=== PATIENT | female | born 1980 | race Caucasian/White ===

== ENCOUNTER 2020-10-05 08:00 | Outpatient (CLI) | payer OTHER, SELFPAY ==
--- NOTE | ~2020-10-05 | XR_ITS ---
EXAMINATION: XR chest 2V 10/05/2020 08:16 INDICATION: Chest palpitations PROCEDURE: 2 view chest COMPARISON: No prior studies for comparison. FINDINGS: The lungs are clear. The cardiomediastinal silhouette is within normal limits. There are no pleural effusions. There is no pneumothorax suspected. IMPRESSION: 1: NO ACUTE CARDIOPULMONARY DISEASE. Reviewed, dictated and finalized at location A.
== END 2020-10-05 08:01 | disposition home or self-care (01) ==
PROVIDERS: PCP Family Medicine; Visit Provider Family Medicine
DX: R00.2 Palpitations (principal)
CPT/HCPCS: 71046

== ENCOUNTER 2021-04-07 09:42 | Outpatient (CLI) | payer OTHER, SELFPAY ==
--- NOTE | ~2021-04-07 | CT_ITS ---
EXAMINATION: CT abdomen pelvis wo con EXAM DATE: 04/07/2021 10:13 INDICATION: R19.7 - Diarrhea, unspecified , abdominal cramping left lower quadrant. Blood per rectum. TECHNIQUE: Spiral CT of the abdomen and pelvis was performed without contrast. Axial, coronal and s agittal images of the abdomen and pelvis were reviewed. The dose-length product (DLP) for this exami nation was 549.79 mGy-cm. The exposure was tailored according to patient size (auto mA exposure cont rol), and iterative reconstruction (ASIR) was used as additional dose reduction technique. There is no prior study for comparison. FINDINGS: The liver, spleen, adrenal glands and pancreas are unremarkable. Gallbladder is unremarkab le. No biliary obstruction. There is no nephrolithiasis or hydronephrosis. The uterus is antevert ed and morphologically normal. The bladder is unremarkable. There is no retroperitoneal or pelvic lymphadenopathy. Small umbilical fat-containing hernia. The appendix is normal. The stomach and small bowel are unremarkable. Splenic flexure and descendin g colon are nondistended with prominent wall, could be infectious colitis. No free intraperitoneal gas. The heart is normal in size. There are no pericardial or pleural effusions. The lung bases a re unremarkable. There are no osteoblastic or osteolytic lesions identified. IMPRESSION: Suspicion of splenic flexure, descending colonic colitis. Would likely be infectious etio logy. Reviewed, dictated and finalized at location B. IMPRESSION: Suspicion of splenic flexure, descending colonic colitis. Would lik fauzia be infectious etiology.
== END 2021-04-07 09:43 ==
PROVIDERS: PCP Family Medicine; Visit Provider Family Medicine
DX: R19.7 Diarrhea, unspecified (principal); K62.5 Hemorrhage of anus and rectum; R10.32 Left lower quadrant pain
CPT/HCPCS: 74176

== ENCOUNTER → 2023-03-11 13:11 | Outpatient (CLI) | payer OTHER, SELFPAY ==
--- NOTE | ~2023-03-11 | MM_ITS ---
EXAMINATION: MM screening maribel BI w adiel HISTORY: Baseline screening mammogram TECHNIQUE: Craniocaudal and mediolateral oblique 3-D tomosynthesis images were obtained and synthetic 2-D images were generated. CAD analysis was submitted and interpreted. COMPARISON: None, baseline BREAST PARENCHYMAL COMPOSITION: There are scattered areas of fibroglandular density. FINDINGS: RIGHT BREAST: There is focal asymmetry in the posterior third of the upper breast. LEFT BREAST: There is focal asymmetry in the middle third of the slightly lower, slightly inner breas t. IMPRESSION: 1. Bilateral focal asymmetries. 2. Additional mammographic views and possible breast ultrasound are recommended to evaluate the bilat eral focal asymmetries and establish a baseline given that this is the first mammographic examination . BI-RADS Category 0: Incomplete: Needs additional imaging evaluation. Reviewed, dictated and finalized at location A. IMPRESSION: 1. Bilateral focal asymmetries. 2. Additional mammographic views and possible breast ultrasound are recommended to evaluate the bilateral focal asymmetries and establish a baseline given tasha t this is the first mammographic examination. BI-RADS Category 0: Incomplete: Needs additional imaging evaluation.
== END ==
PROVIDERS: PCP Family Medicine; Visit Provider Physician Assistant
DX: Z12.31 Encounter for screening mammogram for malignant neoplasm of breast (principal); R92.8 Other abnormal and inconclusive findings on diagnostic imaging of breast
CPT/HCPCS: 77063; 77067

== ENCOUNTER 2023-04-04 07:50 | Outpatient (CLI) | payer OTHER, SELFPAY ==
--- NOTE | ~2023-04-04 | MMUS_ITS ---
EXAMINATION: MM diagnostic maribel BI w adiel, US breast RT limited HISTORY: Follow-up breast asymmetries TECHNIQUE: Additional 3-D tomosynthesis images of the breasts were performed and synthetic 2-D images were generated. CAD analysis was submitted and interpreted. High resolution limited right breast ult rasound was performed. COMPARISON: 03/11/2023 BREAST PARENCHYMAL COMPOSITION: The breasts are heterogeneously dense, which may obscure small masses FINDINGS: MAMMOGRAPHIC FINDINGS: Left breast asymmetry compresses with spot and mediolateral views, consistent with superimposed fibro glandular tissue. There is persistent asymmetry superiorly in the right breast on MLO and ML views. ULTRASOUND: Limited right breast ultrasound: At 1:00, 1 cm from the nipple there is 2 mm cyst. At 10:00, 7 cm fro m the nipple there is an oval hypoechoic mass measuring 6 mm with parallel orientation, no significan t posterior features and no internal vascularity, likely complicated cysts. At 10:00, 4 cm from the n ipple there is a 3 mm cyst. IMPRESSION: 1. Probable benign complicated cyst of the right breast at 10:00, 7 cm from the nipple. Right breast asymmetry is likely superimposed fibroglandular tissue. 2. Recommend 6 month follow-up diagnostic right mammogram and Limited right breast ultrasound BI-RADS category 3, probably benign findings. Reviewed, dictated and finalized at location A. IMPRESSION: 1. Probable benign complicated cyst of the right breast at 10:00, 7 cm from the nipple. Right breast asymmetry is likely superimposed fibroglandular tissue. 2. Recommend 6 month follow-up diagnostic right mammogram and Limited right lupillo ast ultrasound BI-RADS category 3, probably benign findings.
== END 2023-04-04 07:51 ==
LOC: MICIMG 07:51
PROVIDERS: PCP Family Medicine; Visit Provider Physician Assistant
DX: R92.8 Other abnormal and inconclusive findings on diagnostic imaging of breast (principal)
CPT/HCPCS: 76642; 77062; 77066; G0279

== ENCOUNTER 2023-09-05 10:11 | Outpatient (CLI) | payer OTHER, SELFPAY ==
--- NOTE | ~2023-09-05 | MMUS_ITS ---
EXAMINATION: MM diagnostic maribel RT w adiel, US breast RT complete HISTORY: Follow-up right breast cyst TECHNIQUE: Additional 3-D tomosynthesis images of the right breast were performed and synthetic 2-D i mages were generated. CAD analysis was submitted and interpreted. High resolution complete right janie st ultrasound was performed. COMPARISON: Comparison to multiple prior studies sequentially, with oldest reviewed study dated 03/11. BREAST PARENCHYMAL COMPOSITION: Dense: The breasts are heterogeneously dense, which may obscure small masses FINDINGS: MAMMOGRAPHIC FINDINGS: There are scattered nodular asymmetries in the upper outer aspect of the right breast. There are no s uspicious calcifications or architectural distortion. ULTRASOUND: Complete US of all 4 quadrants of the right breast and retroareolar region was reviewed. At 1:00 ther e is a 2 mm cyst. At 10:00, 4 cm from the nipple there is a 3 mm cyst. At 11:00, 3 cm from the nipple there is a 4 mm intramammary lymph node. No suspicious sonographic abnormalities to suggest malignan cy. IMPRESSION: 1. No evidence for malignancy in the right breast. Benign findings. 2. Routine yearly screening mammogram and regular clinical breast examination are recommended. BI-RADS Category 2: Benign finding(s). Reviewed, dictated and finalized at location A. [address] [facility]IGHT IMPRESSION: 1. No evidence for malignancy in the right breast. Benign findings. 2. Routine yearly screening mammogram and regular clinical breast examination a re recommended. BI-RADS Category 2: Benign finding(s).
== END 2023-09-05 10:12 | disposition home or self-care (01) ==
PROVIDERS: PCP Family Medicine; Visit Provider Physician Assistant
DX: R92.8 Other abnormal and inconclusive findings on diagnostic imaging of breast (principal)
CPT/HCPCS: 76641; 77061; 77065; G0279